=== PATIENT | female | born 1985 | race Asian ===

== ENCOUNTER 2017-09-11 05:13 | Inpatient (IN) | payer SELFPAY ==
[~2017-09-11] VITALS: Ht 156 cm; Wt 49.9 kg
[2017-09-11] MEDS ORDERED: FERR-252 PO (06:20)
[2017-09-11] MEDS ORDERED: TRIMETHOBENZAMIDE 200 MG/2 ML SYR IM PRN (06:20)
[2017-09-11] MEDS ORDERED: METHYLERGONOVINE 0.2 MG/ML AMP IM PRN ×2 (06:20→10:00)
[2017-09-11] MEDS ORDERED: IBUPROFEN 800 MG TAB PO PRN (06:20)
[2017-09-11] MEDS ORDERED: TEMAZEPAM 15 MG CAP PO PRN ×2 (06:20→10:00)
[2017-09-11] MEDS ORDERED: SIMETHICONE 80 MG TAB.CHEW PO PRN (06:20)
[2017-09-11] MEDS ORDERED: HYDROcodone/APAP 5/325 MG 1 TAB TAB PO PRN ×2 (06:20→10:00)
[2017-09-11] MEDS ORDERED: oxyCODONE/APAP 5/325 MG 1 TAB TAB PO PRN ×2 (06:20→10:00)
[2017-09-11] MEDS ORDERED: MEASLES, MUMPS, AND RUBELLA 1 VIAL SQVAC PRN ×2 (06:20→10:00)
[2017-09-11] MEDS ORDERED: LACTATED RINGERS 1,000 ML IV SCH (06:22)
[2017-09-11 07:24] LABS: BASOPHILS # (AUTO) 0.1 K/uL (0.00-0.22); BASOPHILS % (AUTO) 1.3 % (0.0-2.0); EOSINOPHILS # (AUTO) 0.1 K/uL (0-0.4); HEMATOCRIT 33.8 % (36-48); LYMPHOCYTES # (AUTO) 1.3 K/uL (2.5-16.5); LYMPHOCYTES % (AUTO) 16.6 % (20.5-51.1); MEAN CORPUSCULAR HEMOGLOBIN 31 pg (27-31); MEAN CORPUSCULAR HGB CONC 33 g/dL (33-37); MEAN CORPUSCULAR VOLUME 94 fL (80-94); MONOCYTES # (AUTO) 0.5 K/uL (0.8-1.0); MONOCYTES % (AUTO) 6.1 % (1.7-9.3); NEUTROPHILS # (AUTO) 5.8 K/uL (1.8-7.7); PLATELET COUNT (AUTO) 133 K/uL (140-450); RED BLOOD CELL COUNT(AUTO) 3.58 MIL/uL (4.20-5.40); RED CELL DISTRIBUTION WIDTH 16.2 % (11.6-13.7); WHITE BLOOD COUNT (AUTO) 7.8 K/uL (4.8-10.8)
[2017-09-11 08:08] LABS: APPEARANCE,URINE CLEAR (CLEAR); BILIRUBIN,URINE NEGATIVE (NEGATIVE); BLOOD, URINE NEGATIVE (NEGATIVE); COLOR,URINE YELLOW (YELLOW); LEUKOCYTE ESTERASE ,URINE NEGATIVE (NEGATIVE); NITRITE, URINE NEGATIVE (NEGATIVE); UGLUCOSE NEGATIVE (NEGATIVE)
[2017-09-11 08:18] LABS: ALBUMIN 2.5 g/dL (3.4-5.0); ANION GAP 11.2 (8-16); CARBON DIOXIDE 23.5 mmol/L (21-32); CREATININE 0.5 mg/dL (0.6-1.3); POTASSIUM 3.7 mmol/L (3.5-5.1); TOTAL BILIRUBIN 0.4 mg/dL (0.0-1.0)
[2017-09-11 08:25] LABS: RBC,URINE NONE SEEN /HPF (0-5); WBC,URINE 0-5 (RARE) /HPF (0-5)
[2017-09-11] MEDS ORDERED: OXYTOCIN 10 UNITS/ML VIAL ONE ×3 (08:52→22:28)
[2017-09-11] MEDS ORDERED: METHYLERGONOVINE 0.2 MG/ML AMP ONE (08:53)
[2017-09-11] MEDS ORDERED: TRIAMCINOLONE 40 MG/ML 5ML VIAL ONE (08:53)
[2017-09-11] MEDS ORDERED: MIDAZOLAM 2 MG/2 ML VIAL ONE (09:01)
[2017-09-11] MEDS ORDERED: MORPHINE PRES FREE 10 MG/10 ML AMP IV ONE (09:02)
--- NOTE | 2017-09-11 09:11 | NUR ---
PATIENT HAS BEEN SCREENED AND CATEGORIZED LOW NUTRITION RISK. PATIENT WILL BE SEEN WITHIN 7 DAYS OF ADMISSION. 09/17/[address]
[2017-09-11] MEDS ORDERED: OXYTOCIN 20 UNITS in LACTATED RINGERS 1,000 ML IV SCH (09:14)
[2017-09-11] MEDS ORDERED: NALOXONE 0.4 MG/ML VIAL IVP PRN ×3 (09:15)
[2017-09-11] MEDS ORDERED: HYDROmorphone 1 MG/ML AMP IVP PRN (09:15)
[2017-09-11] MEDS ORDERED: diphenhydrAMINE 50 MG/ML VIAL IVP PRN ×2 (09:15)
[2017-09-11] MEDS ORDERED: ONDANSETRON 4 MG/2 ML VIAL IVP PRN ×2 (09:15)
[2017-09-11] MEDS ORDERED: MEPERIDINE 25 MG/ML SYR IVP PRN (09:15)
[2017-09-11] MEDS ORDERED: NALBUPHINE 10 MG/ML AMP IVP PRN (09:15)
[2017-09-11] MEDS ORDERED: diphenhydrAMINE 50 MG/ML VIAL ONE (10:18)
[2017-09-11] MEDS ORDERED: OXYTOCIN 20 UNITS/LR PREMIX 1,000 ML IV ONE (10:18)
[2017-09-11] MEDS ORDERED: ONDANSETRON 4 MG/2 ML VIAL ONE (10:29)
[2017-09-11] MEDS ORDERED: KETOROLAC 30 MG/ML VIAL IM/IVP SCH (12:00)
[2017-09-11] MEDS ORDERED: INFLUENZA VIRUS VACCINE QUAD 0.5 ML SYR IMVAC SCH (13:05)
[2017-09-11] MEDS ORDERED: SODIUM PHOSPHATE 118 ML ENEM RC PRN (13:05)
[2017-09-11] MEDS ORDERED: DOCUSATE SOD/SENNA 50/8.6 MG 1 TAB PO SCH (21:00)
[2017-09-11] MEDS: DOCUSATE SOD/SENNA 50/8.6 MG 1 TAB PO SCH (21:00)
[2017-09-12] MEDS: OXYTOCIN 20 UNITS in LACTATED RINGERS 1,000 ML IV SCH ×2 (00:27→08:00)
[2017-09-12 07:03] LABS: HEMATOCRIT 34.6 % (36-48); HEMOGLOBIN 11.8 g/dL (12.0-16.0); MEAN CORPUSCULAR HEMOGLOBIN 32 pg (27-31); MEAN CORPUSCULAR HGB CONC 34 g/dL (33-37); MEAN CORPUSCULAR VOLUME 93 fL (80-94); PLATELET COUNT (AUTO) 140 K/uL (140-450); RED BLOOD CELL COUNT(AUTO) 3.73 MIL/uL (4.20-5.40); RED CELL DISTRIBUTION WIDTH 15.8 % (11.6-13.7)
[2017-09-12] MEDS ORDERED: OXYTOCIN 10 UNITS/ML VIAL ONE (07:22)
[2017-09-12 08:50] LABS: LYMPHOCYTES % (MANUAL) 6 % (20-46)
[2017-09-12 08:51] LABS: MONOCYTES % (MANUAL) 2 % (5-12)
[2017-09-12] MEDS ORDERED: SODIUM PHOSPHATE 118 ML ENEM RC SCH (09:00)
[2017-09-13] MEDS: IBUPROFEN 800 MG TAB PO PRN (15:52)
[2017-09-13 17:40] LABS: RAPID PLASMA REAGIN NON-REACTIVE (Non Reactiv)
[2017-09-13] MEDS: DOCUSATE SOD/SENNA 50/8.6 MG 1 TAB PO SCH (21:35)
[2017-09-14] MEDS: IBUPROFEN 800 MG TAB PO PRN (08:29)
== END 2017-09-14 13:55 | disposition home or self-care (01) | DRG 766 ==
LOC: MLD 05:13 → MFCC 11:15
PROVIDERS: ADMIT Obstetrics & Gynecology; ATTEND Obstetrics & Gynecology
PROC: 0UB70ZZ Excision of Bilateral Fallopian Tubes, Open Approach (ICD-10-PCS; 2017-09-11)
PROC: 10D00Z1 Extraction of Products of Conception, Low, Open Approach (ICD-10-PCS; principal; 2017-09-11 09:00)
PROC: 3E0234Z Introduction of Serum, Toxoid and Vaccine into Muscle, Percutaneous Approach (ICD-10-PCS; 2017-09-13)
DX: O69.1XX0 Labor and delivery complicated by cord around neck, with compression, not applicable or unspecified (principal); Z23 Encounter for immunization; Z37.0 Single live birth; Z3A.39 39 weeks gestation of pregnancy; Z97.5 Presence of (intrauterine) contraceptive device
CPT/HCPCS: 36415; 80053; 81001; 85025; 86592; 86886; 86900; 86901; 90658; 90715; J0690; J1200; J1885; J2210; J2250; J2270; J2405; J2590; J3301; J7060; J7120